=== PATIENT | male | born 1985 | race Hispanic/Latino ===

== ENCOUNTER 2020-05-18 10:04 | Day surgery (SDC) | payer OTHER ==
[2020-05-17 10:50] VITALS: BMI 47.3
[~2020-05-18 10:04] MED LIST: Magnevist 469MG/ML 20 ML VIAL ONE
[2020-05-18] MEDS ORDERED: Fentanyl 100 MCG/2 ML VIAL ONE (12:19)
[2020-05-18] MEDS ORDERED: Midazolam HCl 5 mg/5 ml Vial ONE (12:20)
--- NOTE | 2020-05-18 14:50 | MRI ---
Exam: Brain MRI with and without contrast HISTORY: Work injury. Headache. Myelopathy. COMPARISON: None FINDINGS: Gradient echo sequence: No hemorrhage Calvarium: Appropriate T1 marrow signal intensity Midline brain parenchyma: Unremarkable Cerebrum:No parenchymal mass, mass effect or midline shift. Brain volume is age-appropriate. Cortical kiran-white matter differentiation is preserved. No significant T2 or FLAIR white matter hyperintensities. Ventricles: No evidence of hydrocephalus. Sinuses and mastoid air cells: Mild mucosal thickening of the maxillary sinuses and ethmoid air cells . Diffusion: Central arterial flow is maintained. Absent restricted diffusion. Postcontrast images: No pathologic enhancement of the brain parenchyma. IMPRESSION: No acute intracranial process. Note, multiple sequences are slightly limited due to motion degradatio n.
--- NOTE | 2020-05-18 14:53 | MRI ---
Exam: Cervical spine MRI with and without contrast HISTORY: Work injury. Neck pain. Right arm pain. Myelopathy. COMPARISON: None. FINDINGS: There is motion degradation due to breathing on multiple sequences. Appropriate T1 marrow signal intensity of the cervical vertebra. Cervical spine vertebral body height is maintained. There is no fracture. There is no significant STIR hyperintensity to suggest vertebral body edema or ligamentous injury. Postcontrast images do not demonstrate any abnormal enhan cement with regards to the vertebral bodies. Visualized brain parenchyma and cervicomedullary junction have a normal signal intensity. There does appear to be mild cerebellar tonsillar herniation, compatible with Chiari I malformation. There is expansion and abnormal signal intensity involving the cervical cord starting at the C2 level and exte nding to the upper thoracic spine. The inferior most aspect is not included on this exam. Postcontrast images demonstrate no abnormal enhancing lesions. C2-C3: No significant central canal stenosis or significant neural foraminal narrowing. C3-C4: No significant central canal stenosis or significant neural foraminal narrowing. C4-C5: No significant central canal stenosis or significant neural foraminal narrowing. C5-C6: Disc desiccation with mild loss of disc space height. Broad-based disc bulge abuts the thecal sac. No significant central canal stenosis. Neural foramina are patent. C6-C7: Minimal disc desiccation without significant loss of disc space height. No significant central canal stenosis. Patent bilateral neural foramina. C7-T1: No significant central canal stenosis or significant neural foraminal narrowing. IMPRESSION: 1. No significant central canal stenosis or significant neural foraminal narrowing throughout the cer vical spine. 2. Mixed T2 signal intensity lesion throughout the visualized cervical and upper thoracic cord. There is cord expansion without evidence of enhancement. The degree of T2 hyperintensity and expansion of the cord is not consistent with a mild Chiari 1 malformation. However, given the absence of enhanc ement and absence of intramedullary lesion cord changes from a syrinx secondary to Chiari I malformation must be considered. Clinical correlation is essential. Transcribed Date/Time: 05/18/2020 3:48 PM
--- NOTE | 2020-05-18 15:04 | MRI ---
Exam: Thoracic spine MRI with and without contrast HISTORY: Work injury. Myelopathy. COMPARISON: None. FINDINGS: Appropriate T1 marrow signal intensity of the thoracic vertebra. Thoracic spine vertebral body height is maintained. No fracture. No significant STIR hyperintensity to suggest vertebral body edema or ligamentous injury. Visualized mediastinum, lung parenchyma and solid organs have appropriate signal intensity. Conus med ullaris extends beyond the superior endplate of L1. There is evidence of expansion and T2 hyperintensity, scattered throughout the thoracic cord. Postcontrast images do not demonstrate any ev idence of pathologic enhancement. Throughout the thoracic spine, neural foramina are patent. Throughout the thoracic spine, there is adequate disc hydration. No significant central canal stenosi s. Minimal broad-based disc bulge at T11-T12. No significant mass effect upon the thecal sac. IMPRESSION: Expansion and abnormal T2 hyperintensity predominantly involving the entire thoracic cord without ass ociated enhancement. Cervical spine MRI demonstrates a mild Chiari I malformation. Signal changes of the cord are presumed to be due to syrinx. Refer to separate cervical spine MRI report for further detail. Transcribed Date/Time: 05/18/2020 3:48 PM
== END 2020-05-18 15:20 | disposition home or self-care (01) ==
LOC: MRI 10:04
PROVIDERS: ATTEND Surgery
DX: M54.2 Cervicalgia (principal); G95.89 Other specified diseases of spinal cord; M79.601 Pain in right arm; R51.9 Headache, unspecified; Z79.891 Long term (current) use of opiate analgesic; Z79.899 Other long term (current) drug therapy; X58.XXXA Exposure to other specified factors, initial encounter; Y99.0 Civilian activity done for income or pay
CPT/HCPCS: 70553; 72156; 72157; A9579; J2250; J3010

== ENCOUNTER 2021-01-01 09:29 | Inpatient (IN) | payer OTHER ==
[2021-01-04] MEDS ORDERED: Bacitracin Zinc Ointment 30 gm TUBE ONE (09:29)
[2021-01-04] MEDS ORDERED: Thrombin 5000 UNITS/5 ML VIAL ONE (09:29)
[2021-01-04] MEDS ORDERED: Fentanyl 250 MCG/5 ML VIAL ONE (10:04)
[2021-01-04] MEDS ORDERED: Dexamethasone 20 MG/5 ML VIAL ONE (10:27)
[2021-01-04] MEDS ORDERED: Lidocaine 1% PF 5 ML VIAL ONE (10:27)
[2021-01-04] MEDS ORDERED: PROPOFOL 200 MG/20 ML VIAL ONE (10:27)
[2021-01-04] MEDS ORDERED: Ketorolac Tromethamine 30 MG/ML VIAL ONE (10:27)
[2021-01-04] MEDS ORDERED: Rocuronium Bromide 10 MG/ML (10ML VIAL) ONE (10:27)
[2021-01-04] MEDS ORDERED: Ondansetron PF 4 MG/2 ML Vial ONE ×2 (10:27→14:59)
[2021-01-04] MEDS ORDERED: Metoprolol Tartrate 5 MG/5 ML VIAL ONE ×2 (10:27→13:57)
[2021-01-04] MEDS ORDERED: SUGAMMADEX SODIUM 200 MG/2 ML VIAL ONE (12:05)
[2021-01-04] MEDS ORDERED: Rocuronium Bromide 50 MG/5 ML VIAL ONE (12:24)
[2021-01-04] MEDS ORDERED: Fentanyl 100 MCG/2 ML VIAL ONE ×3 (12:24→14:50)
[2021-01-04] MEDS ORDERED: Promethazine HCl 25 MG/ML VIAL IM PRN ×2 (13:01→14:02)
[2021-01-04] MEDS ORDERED: HYDROmorphone 0.5 MG/0.5 ML SYRINGE ONE (13:44)
[2021-01-04] MEDS ORDERED: Promethazine HCl 25 MG/ML VIAL ONE (13:49)
[2021-01-04] MEDS ORDERED: Ondansetron HCl/PF 4 MG/2 ML Vial IVP PRN (14:02)
[2021-01-04] MEDS ORDERED: Promethazine HCl 25 MG/ML VIAL SLOW IVP PRN (14:02)
[2021-01-04] MEDS ORDERED: Labetalol HCl 100 MG/20 ML VIAL ONE (14:24)
[2021-01-04] MEDS: Acetaminophen 325 MG TAB PO PRN ×2 (16:15→21:52)
[2021-01-04] MEDS: Sodium Chloride 0.9% 1,000 ML IV SCH (16:17)
[2021-01-04] MEDS: CEFAZOLIN 2 GM in Premix Bag 1 BAG IVPB SCH ×2 (16:18→23:49)
[2021-01-04] MEDS: HYDROcodone/Acetaminophen 7.5/325 mg Tablet PO PRN (16:52)
[2021-01-04] MEDS ORDERED: hydrALAZINE 20 MG/ML VIAL SLOW IVP PRN (17:38)
[2021-01-04] MEDS: hydrALAZINE 20 MG/ML VIAL SLOW IVP PRN ×5 (18:03→19:43)
[2021-01-04] MEDS: Morphine 2 MG/ML VIAL SLOW IVP PRN ×2 (18:31→19:40)
[2021-01-04] MEDS ORDERED: niCARdipine 25 MG in Sodium Chloride 0.9% 250 ML 240 ML IVPB SCH (19:00)
[2021-01-04] MEDS: niCARdipine 25 MG in Sodium Chloride 0.9% 250 ML 240 ML IVPB SCH ×2 (19:20→21:53)
[2021-01-04] MEDS ORDERED: Labetalol HCl 100 MG/20 ML VIAL SLOW IVP PRN (20:20)
[2021-01-04] MEDS: Fentanyl 100 MCG/2 ML VIAL SLOW IVP PRN (22:02)
[2021-01-05] MEDS: niCARdipine 25 MG in Sodium Chloride 0.9% 250 ML 240 ML IVPB SCH ×2 (00:28→05:05)
[2021-01-05] MEDS: Fentanyl 100 MCG/2 ML VIAL SLOW IVP PRN ×3 (01:24→03:14)
[2021-01-05] MEDS: traMADol HCl 50 MG TAB PO PRN ×2 (02:13→07:40)
[2021-01-05] MEDS: Sodium Chloride 0.9% 1,000 ML IV SCH ×2 (02:50→17:49)
[2021-01-05] MEDS: HYDROcodone/Acetaminophen 7.5/325 mg Tablet PO PRN ×5 (03:23→23:15)
[2021-01-05] MEDS ORDERED: Diazepam 5 MG TAB PO SCH ×2 (03:45→10:15)
[2021-01-05] MEDS: tiZANidine HCl 4 MG TAB PO PRN (07:40)
[2021-01-05] MEDS: CEFAZOLIN 2 GM in Premix Bag 1 BAG IVPB SCH ×2 (07:47→16:22)
[2021-01-05] MEDS ORDERED: Ketorolac Tromethamine 30 MG/ML VIAL ONE (09:58)
[2021-01-05] MEDS ORDERED: Ketorolac Tromethamine 30 MG/ML VIAL IVP SCH (10:15)
[2021-01-05] MEDS: Acetaminophen/Codeine 30-300mg Tablet PO PRN (12:28)
[2021-01-05] MEDS: Acetaminophen 325 MG TAB PO PRN (16:22)
[2021-01-05] MEDS: Ketorolac Tromethamine 30 MG/ML VIAL IVP SCH (18:02)
[2021-01-05] MEDS: Diazepam 5 MG TAB PO SCH (18:06)
[2021-01-06] MEDS: CEFAZOLIN 2 GM in Premix Bag 1 BAG IVPB SCH ×2 (00:20→07:36)
[2021-01-06] MEDS: Ketorolac Tromethamine 30 MG/ML VIAL IVP SCH ×3 (01:47→17:39)
[2021-01-06] MEDS: tiZANidine HCl 4 MG TAB PO PRN ×2 (01:47→08:05)
[2021-01-06] MEDS: Diazepam 5 MG TAB PO SCH ×3 (01:47→17:38)
[2021-01-06] MEDS: Sodium Chloride 0.9% 1,000 ML IV SCH ×2 (03:57→19:21)
[2021-01-06] MEDS: HYDROcodone/Acetaminophen 7.5/325 mg Tablet PO PRN ×2 (04:24→22:39)
[2021-01-06] MEDS: Fentanyl 100 MCG/2 ML VIAL SLOW IVP PRN ×2 (04:43→07:25)
[2021-01-06] MEDS: hydrALAZINE 20 MG/ML VIAL SLOW IVP PRN ×2 (05:20→07:27)
[2021-01-06] MEDS ORDERED: Dexamethasone 10 MG/ML VIAL SLOW IVP SCH (09:00)
[2021-01-06] MEDS ORDERED: Diazepam 5 MG TAB PO SCH (09:00)
[2021-01-06] MEDS: Acetaminophen/Codeine 30-300mg Tablet PO PRN (14:35)
[2021-01-06] MEDS: traMADol HCl 50 MG TAB PO PRN (14:36)
[2021-01-06] MEDS: Dexamethasone 4 MG TAB PO SCH ×2 (16:13→22:29)
[2021-01-06 19:47] VITALS: BMI 48.4
[2021-01-07] MEDS: Diazepam 5 MG TAB PO SCH ×2 (02:09→10:37)
[2021-01-07] MEDS: Ketorolac Tromethamine 30 MG/ML VIAL IVP SCH ×2 (02:09→10:36)
[2021-01-07] MEDS: HYDROcodone/Acetaminophen 7.5/325 mg Tablet PO PRN (04:11)
[2021-01-07] MEDS: Dexamethasone 4 MG TAB PO SCH ×2 (04:12→10:37)
[2021-01-07] MEDS: Sodium Chloride 0.9% 1,000 ML IV SCH (09:02)
[2021-01-07 11:29] VITALS: BP 146/100; TEMP 99.1
== END 2021-01-07 13:20 | disposition home or self-care (01) | DRG 26 ==
LOC: EDSTATUS 12:45 → SURG A 01-04 07:59 → CCU 01-04 15:57 → SURG B 01-05 11:51
PROVIDERS: ADMIT Surgery; ATTEND Surgery
PROC: 00NC0ZZ Release Cerebellum, Open Approach (ICD-10-PCS; principal; 2021-01-04)
PROC: 00U207Z Supplement Dura Mater with Autologous Tissue Substitute, Open Approach (ICD-10-PCS; 2021-01-04)
PROC: 00NW0ZZ Release Cervical Spinal Cord, Open Approach (ICD-10-PCS; 2021-01-04)
DX: G93.5 Compression of brain (principal); G95.0 Syringomyelia and syringobulbia; I10 Essential (primary) hypertension; Z20.822 Contact with and (suspected) exposure to COVID-19
CPT/HCPCS: 76000; J0360; J0690; J1100; J1170; J1885; J2270; J2405; J2550; J2704; J3010; J3370; J7050; J8540

== ENCOUNTER 2021-01-01 13:14 | Outpatient (CLI) | payer OTHER ==
[2021-01-01 14:59] LABS: Anion Gap 12 mmol/L (10-20); BUN (Urea Nitrogen) 13 mg/dL (8.9-20.6); Calc. Creatinine Clearance 0 mL/min (70-130); Calcium 9.5 mg/dL (7.8-10.44); Carbon Dioxide 27 mmol/L (22-29); Chloride 104 mmol/L (98-107); Glucose 90 mg/dL (70-105); Potassium 4.9 mmol/L (3.5-5.1); Sodium 138 mmol/L (136-145)
[2021-01-01 15:06] LABS: #Basophils 0.1 10x3/uL (0.0-0.2); #Eosinphils 0.2 10x3/uL (0.0-0.5); #Monocytes 0.5 10x3/uL (0.0-1.1); #Neutrophils 5.1 10x3/uL (1.5-8.4); %Basophils 0.8 % (0.0-2.0); %Eosinophils 2.5 % (0.0-6.0); %Lymphocytes 32.6 % (18.0-47.0); %Monocytes 6.1 % (0.0-10.0); %Neutrophils 57.5 % (40.0-75.0); Hemoglobin 15.6 g/dL (13.5-17.5); Mean Corpuscular HGB CONC 32.5 g/dL (32.0-36.0); Mean Corpuscular Hemoglobin 27.6 pg (27.0-33.0); Mean Platelet Volume 9.9 fl (7.4-10.4); Platelet Count 294 10x3/uL (150-450); RBC Distribution Width 14.8 % (11.5-14.5); Red Blood Cell (RBC) Count 5.65 10x6/uL (4.32-5.72); White Blood Cell (WBC) Count 8.8 10x3/uL (3.5-10.5)
[2021-01-01 15:10] LABS: INR-International Normal Ratio 0.9; PTT 32.5 sec (22.0-33.0); Prothrombin Time 10.5 sec (9.5-12.1)
[2021-01-02 00:12] LABS: SARS-CoV-2 NAA Rapid Test Not Detected (NotDetected)
== END 2021-01-01 13:15 | disposition home or self-care (01) ==
LOC: LABBT 13:14
PROVIDERS: ATTEND Surgery
DX: Z01.818 Encounter for other preprocedural examination (principal); G93.5 Compression of brain; Z20.822 Contact with and (suspected) exposure to COVID-19
CPT/HCPCS: 80048; 85025; 85610; 85730; 93005; 93010; U0002; U0005

== ENCOUNTER 2021-01-31 13:20 | Emergency (ER) | payer OTHER ==
[2021-01-31 14:33] LABS: #Basophils 0.1 thou/uL (0.0-0.2); #Eosinphils 0.2 thou/uL (0.0-0.7); #Lymphocytes 2.7 thou/uL (1.20-3.40); #Monocytes 0.4 thou/uL (0.11-0.59); #Neutrophils 5.3 thou/uL (1.40-6.50); %Basophils 1.1 % (0.0-1.0); %Eosinophils 1.8 % (0.0-10.0); %Lymphocytes 30.9 % (21.0-51.0); %Neutrophils 61.2 % (42.0-75.0); Hemoglobin 16.6 g/dL (14.0-18.0); Mean Corpuscular HGB CONC 33.1 g/dL (32.0-36.0); Mean Corpuscular Hemoglobin 29.2 pg (27.0-31.0); Mean Corpuscular Volume 88.4 fL (78.0-98.0); Platelet Count 285 thou/uL (130-400); RBC Distribution Width 13.7 % (11.5-14.5); White Blood Cell (WBC) Count 8.6 thou/uL (4.8-10.8)
[2021-01-31 14:50] LABS: ALT (SGPT) 39 U/L (8-55); AST (SGOT) 27 U/L (5-34); Alkaline Phosphatase 88 U/L (40-110); Anion Gap 17 mmol/L (10-20); BUN (Urea Nitrogen) 11 mg/dL (8.9-20.6); Bilirubin, Total 0.5 mg/dL (0.2-1.2); Calc. Creatinine Clearance 0 mL/min (70-130); Calcium 9.6 mg/dL (7.8-10.44); Carbon Dioxide 20 mmol/L (22-29); Chloride 104 mmol/L (98-107); Glucose 95 mg/dL (70-105); Potassium 4.8 mmol/L (3.5-5.1); Sodium 136 mmol/L (136-145)
[2021-01-31] MEDS ORDERED: Lidocaine 1% w/Epinephrine 1:100K 20 ML VIAL ONE (15:43)
== END 2021-01-31 16:28 | disposition home or self-care (01) ==
LOC: ERS 13:20
DX: Z48.817 Encounter for surgical aftercare following surgery on the skin and subcutaneous tissue (principal); Z98.890 Other specified postprocedural states
CPT/HCPCS: 36415; 80053; 85025; 99283

== ENCOUNTER 2021-06-21 11:03 | Outpatient (CLI) | payer OTHER ==
[2021-06-21 19:20] LABS: SARS-CoV-2 PCR by NAA Not Detected (NotDetected)
== END 2021-06-21 11:04 | disposition home or self-care (01) ==
LOC: LABBT 11:03
PROVIDERS: ATTEND Surgery
DX: Z01.812 Encounter for preprocedural laboratory examination (principal); Z20.822 Contact with and (suspected) exposure to COVID-19
CPT/HCPCS: U0003; U0005

== ENCOUNTER 2021-06-24 09:58 | Day surgery (SDC) | payer OTHER ==
[2021-06-21 12:09] VITALS: BMI 47.3
[2021-06-24] MEDS ORDERED: PROPOFOL 200 MG/20 ML VIAL ONE (12:30)
[2021-06-24] MEDS ORDERED: Lidocaine 1% PF 5 ML VIAL ONE (12:30)
== END 2021-06-24 14:20 | disposition home or self-care (01) ==
LOC: MRI 09:58
PROVIDERS: ATTEND Surgery
DX: G93.5 Compression of brain (principal); Z98.890 Other specified postprocedural states
CPT/HCPCS: 72141; J2704